=== PATIENT | female | born 1985 | race Hispanic/Latino ===

== ENCOUNTER 2017-10-31 05:28 | Inpatient (IN) | payer MEDICAID, OTHER, SELFPAY ==
[2017-10-31 06:07] VITALS: BMI 41.5
--- NOTE | 2017-10-31 07:15 | PDOC.FPROB ---
FMR OB H&P: HPI - History of Present Illness Chief Complaint: contractions History of Present Illness: 32yo F comes in for contractions started at about midnight 6 min apart. Now 3-5 minutes apart. She denies rupture of membranes. Denies bleeding, headache, sob, or swelling. Last meal 6pm 10/30. Primary Care Physician: lucas FMR OB H&P: Current - Care : 3 Para: 1 Gestational age: 40.0 Due date: 10/31 Dating Criteria: 8.3 wk US Total weight gain: 30 Course/Complications: bp 140/72 at last clinic visit maternal obesity - OB Labs Blood type: O RH: positive Antibody Screen: negative HIV: negative RPR: negative HepBsAg: negative Rubella: immune Urine drug screen: negative Gonorrhea: negative Chlamydia: negative Pap Smear: negative 1 hour gtt: negative A1c: normal FMR OB H&P: History - Past Medical History PMH: negative - OB History OB History: 1st : SAB at 9 weeks 2nd : op note reviewed, C/S 2/2 non-reassuring FHT, had dilated to 6 at time of surgery - 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 - Surgical History Sx History: C/S x1 - Social History Social History: no alcohol, smoking, or drugs FMR OB H&P: Medications - Current Home Medications: Medication Instructions Recorded Confirmed Type 105/Iron/Folic AC/Dha 1 tablet PO DAILY 10/31/17 10/31/17 History [[employer] Combo Pack] Allergies/Adverse Reactions: Allergies Allergy/AdvReac Type Severity Reaction Status Date / Time No Known Allergies Allergy Unverified 10/31/17 05:59 FMR OB H&P: ROS - Review of Systems General: denies: fever/chills, fatigue Eyes: denies: vision changes, double vision ENT: denies: nasal congestion, pain with swallowing Cardiovascular: denies: chest pain, palpitation Respiratory: denies: cough, congestion, shortness of breath Gastrointestinal: denies: nausea, vomiting, diarrhea Genitourinary (Female): reports: contractions. denies: dysuria, hematuria, vaginal bleeding Neurologic: denies: numbness, weakness, headache Integumentary: denies: itching Hematologic/Lymphatic: denies: prolonged or excessive bleeding Psychological: denies: depression, anxiety FMR OB H&P: Vital Signs - Maternal Vital signs: Vital Signs - First Documented Temp Pulse Resp BP 99.3 F 104 H 18 137/65 10/31/17 05:58 10/31/17 05:58 10/31/17 05:58 10/31/17 05:58 FMR OB H&P: Physical Exam - Physical Exam General: NAD, awake, alert and oriented HEENT: normocephalic and atraumatic Neck: supple Chest: non-tender to palpation Breast: symmetric Heart: RRR, normal S1/S2 General: CTAB, no respiratory distress Abdomen: soft, gravid Musculoskeletal: normal gait and station, pulses present Neurological: cranial nerves II through XII intact Skin: no rash, capillary refill <2 seconds Lymphatic: no unusual bruising or bleeding FMR OB H&P: Results - Labs Lab results: GBS negative - Imaging Imaging: posterior placenta FMR OB H&P: A/P - Problem List (1) Encounter for trial of labor Current Visit: Yes Status: Acute Code(s): O33.9 - MATERNAL CARE FOR DISPROPORTION, UNSPECIFIED Disposition: Admit to L&D # Tolac - denies ROM - /-2 at 0550 - cxns 3-5 min apart - cat 1 strip - discussed risks/benefits of TOLAC, patient is in understanding # Elevated BP - 137/65 on presentation - came down on re-checks in clinic - Pr/Cr ratio 0.16 - monitor BP # size > dates - growth scan on 10/26 will try to obtain results Discussion: Date/Time: 10/31/17 0713 This H&P was discussed with [] and [] who agree with the above documentation and plan. Attending Addendum - Attending Addendum Date/Time: 11/02/17 0844 I personally evaluated the patient and discussed the management with [Marianne] I agree with the History, Examination, Assessment and Plan documented above with any addition or exceptions noted below.
[2017-10-31] MEDS ORDERED: Lidocaine 1% (PF) 30 ML VIAL SC PRN (07:32)
[2017-10-31] MEDS ORDERED: Promethazine HCl 25 MG/ML VIAL IM PRN ×2 (07:32→22:05)
[2017-10-31] MEDS ORDERED: Butorphanol Tartrate 1 MG/ML VIAL SLOW IVP PRN (07:32)
[2017-10-31] MEDS ORDERED: Ondansetron HCl/PF 4 MG/2 ML Vial IVP PRN ×3 (07:32→22:05)
[2017-10-31] MEDS ORDERED: NS / Oxytocin 40 units/1000ml 1,000 ML IV PRN (07:32)
[2017-10-31 08:39] LABS: Hemoglobin 12.1 g/dL (12.0-16.0); Mean Corpuscular HGB CONC 35.7 g/dL (32.0-36.0); Mean Corpuscular Hemoglobin 30.4 pg (27.0-31.0); Mean Corpuscular Volume 85.2 fL (78.0-98.0); Mean Platelet Volume 6.9 fL (7.4-10.4); Platelet Count 170 thou/uL (130-400); RBC Distribution Width 12.6 % (11.5-14.5); Red Blood Cell (RBC) Count 3.97 mill/uL (4.20-5.40); White Blood Cell (WBC) Count 9.4 thou/uL (4.8-10.8)
--- NOTE | 2017-10-31 09:08 | PDOC.LDPN ---
Labor & Delivery Progress Note - Subjective Subjective: comfortable, painful contractions - Objective Vital signs reviewed and normal: yes General: NAD, resting, breathing through contractions Uterine fundus: non tender Dilation: 5 Effacement: 75% Station: -2 FHT: category 1 [place] contractions every: 4 - Assessment (1) Encounter for trial of labor Code(s): O33.9 - MATERNAL CARE FOR DISPROPORTION, UNSPECIFIED Current Visit: Yes Status: Acute Plan: continue plan of care -: # [place] - denies ROM - /-2 at 0800 - cxns 3-5 min apart - cat 1 strip - discussed risks/benefits of TOLAC, patient is in understanding # Elevated BP - 137/65 on presentation - came down on re-checks in clinic - Pr/Cr ratio 0.16 - monitor BP # size > dates - patient was 3900g on 10/26 # Hx of C/S 2/2 NRFHTs - discussed with PCP - first section was due to NRFHT not failure to progress as documented in [facility] records - PCP reviewed records from [facility]
[2017-10-31 09:12] LABS: Syphilis Antibody Nonreactive (Nonreactive); Syphilis Antibody Index 0.04 S/CO (<1.00 Non-Reactive)
[2017-10-31 09:15] LABS: HBSAg Index 0.19 S/CO (0-0.99); Hep B Surf Ag Non-Reactive S/CO (NonReactive)
--- NOTE | 2017-10-31 09:19 | PDOC.LDPN ---
Labor & Delivery Progress Note - Subjective Subjective: comfortable, painful contractions - Objective General: breathing through contractions Uterine fundus: non tender Dilation: 6 Effacement: 90% Station: -2 FHT: category 1 [place] contractions every: 3-5 Procedures: AROM AROM: clear fluid IUPC placed: yes - Assessment (1) Encounter for trial of labor Code(s): O33.9 - MATERNAL CARE FOR DISPROPORTION, UNSPECIFIED Current Visit: Yes Status: Acute -: # [place] - denies ROM - /-2 at 0900 - cxns 3-5 min apart - cat 1 strip - discussed risks/benefits of TOLAC, patient is in understanding # Elevated BP - 137/65 on presentation - came down on re-checks in clinic - Pr/Cr ratio 0.16 - monitor BP # size > dates - patient was 3900g on 10/26 # Hx of C/S 2/2 NRFHTs - discussed with PCP - first section was due to NRFHT not failure to progress as documented in [facility] records - PCP reviewed records from [facility] Procedure: AROM - Head engaged, non-ballotable - cat 1 strip before AROM - clear fluids - IUPC placed without difficulty
[2017-10-31] MEDS ORDERED: Lactated Ringer's 1,000 ML IV SCH (11:15)
--- NOTE | 2017-10-31 15:13 | PDOC.LDPN ---
Labor & Delivery Progress Note - Subjective Subjective: comfortable, other (states contraction pain is not bad) - Objective Vital signs reviewed and normal: yes General: NAD, breathing through contractions Uterine fundus: non tender Dilation: 7 Effacement: 90% Station: -1 FHT: category 1 - Assessment (1) Encounter for trial of labor Code(s): O33.9 - MATERNAL CARE FOR DISPROPORTION, UNSPECIFIED Current Visit: Yes Status: Acute Plan: continue plan of care
--- NOTE | 2017-10-31 15:18 | PDOC.LDPN ---
Labor & Delivery Progress Note - Subjective Subjective: comfortable, other (pain with contractions is "more or less", not bad) - Objective Vital signs reviewed and normal: yes General: NAD, breathing through contractions Dilation: 7 Effacement: 90% Station: -1 - Assessment (1) Encounter for trial of labor Code(s): O33.9 - MATERNAL CARE FOR DISPROPORTION, UNSPECIFIED Current Visit: Yes Status: Acute Plan: continue plan of care -: # [place] - denies ROM - /-1 at 1500 - cxns have spaced out, every 7-10 now - cat 1 strip - discussed risks/benefits of TOLAC, patient is in understanding - will need pit when nurse staffing allows - IUPC in place # Elevated BP - 137/65 on presentation - came down on re-checks in clinic - Pr/Cr ratio 0.16 - monitor BP # size > dates - patient was 3900g on 10/26 # Hx of C/S 2/2 NRFHTs - discussed with PCP - first section was due to NRFHT not failure to progress as documented in [facility] records - PCP reviewed records from [facility]
[2017-10-31] MEDS ORDERED: Oxytocin 10 UNITS/ML VIAL ONE ×2 (15:24→21:28)
[2017-10-31] MEDS ORDERED: NS w/ Oxytocin 10 units 500 ML ONE (15:26)
[2017-10-31] MEDS ORDERED: Sodium Chloride 0.9% 1,000 ML IV SCH (16:00)
[2017-10-31] MEDS: Lactated Ringer's 1,000 ML IV SCH (16:37)
--- NOTE | 2017-10-31 18:05 | PDOC.LDPN ---
Labor & Delivery Progress Note - Subjective Subjective: comfortable - Objective Vital signs reviewed and normal: yes General: resting Uterine fundus: non tender Dilation: /-1 per nurse check FHT: category 1 (150/mod/no accels/no decels) - Assessment (1) Encounter for trial of labor Code(s): O33.9 - MATERNAL CARE FOR DISPROPORTION, UNSPECIFIED Current Visit: Yes Status: Acute (2) Term Code(s): Z34.80 - ENCOUNTER FOR SUPRVSN OF NORMAL , UNSP TRIMESTER Current Visit: Yes Status: Acute Plan: continue plan of care -: 32 yo at 40.0w by LMP/8.3w sono here in labor 1. TOLAC - /-1 at 1715, unchanged at last check - IUPC in place and pitocin being titrated up - contractions q3-4 minutes - cat 1 strip - discussed risks/benefits of TOLAC, patient is in understanding 2. Elevated BP - 137/65 on presentation, 129/61 most recently - came down on re-checks in clinic - Pr/Cr ratio 0.16 - monitor BP 3. size > dates - patient was 3900g via growth sono 10/26 4. Hx of C/S 2/2 NRFHTs - discussed with PCP - first section was due to NRFHT per patient not failure to progress as documented in [facility] records - unable to review records at this time - Posterior placenta 5. GBS negative 6. Fam Hx HTN, DM 7. H/o D&C Will plan to recheck at approx 1915 unless indicated sooner, continue titration of pitocin with goal MVU approx 200
--- NOTE | 2017-10-31 19:21 | PDOC.LDPN ---
Labor & Delivery Progress Note - Subjective Subjective: painful contractions - Objective Vital signs reviewed and normal: yes General: breathing through contractions Uterine fundus: non tender Dilation: 7 Effacement: 90% Station: -1 FHT: category 1 (150/mod/no accel/no decel) [place] contractions every: 2-4 min - Assessment (1) Encounter for trial of labor Code(s): O33.9 - MATERNAL CARE FOR DISPROPORTION, UNSPECIFIED Current Visit: Yes Status: Acute (2) Term Code(s): Z34.80 - ENCOUNTER FOR SUPRVSN OF NORMAL , UNSP TRIMESTER Current Visit: Yes Status: Acute Plan: continue plan of care, pitocin for augmentation -: 32 yo at 40.0w by LMP/8.3w sono here in labor 1. TOLAC - /-1 - IUPC in place and pitocin being titrated up, MVU not yet adequate - contractions q2-4 minutes - cat 1 strip - discussed risks/benefits of TOLAC, patient is in understanding 2. Elevated BP on presentation - WNL throughout labor - Consistently came down on re-checks in clinic - Pr/Cr ratio 0.16 - monitor BP 3. size > dates - patient was 3900g via growth sono 10/26 4. Hx of C/S 2/2 NRFHTs - first section was due to NRFHT per patient not failure to progress as documented in PNC records - unable to review records at this time - Posterior placenta 5. GBS negative 6. Fam Hx HTN, DM 7. H/o D&C [place]he[place]x [id number] unless indicated sooner, continue titration of pitocin with goal MVU approx 200
[2017-10-31] MEDS ORDERED: CEFAZOLIN/Water 2 GM/20 ML SYRINGE ONE (21:16)
[2017-10-31] MEDS ORDERED: Bicitra 30 ML UDCUP ONE (21:16)
--- NOTE | 2017-10-31 21:23 | PDOC.LDPN ---
Labor & Delivery Progress Note - Subjective Subjective: comfortable - Objective Vital signs reviewed and normal: yes General: breathing through contractions Dilation: /-1 FHT: category 1 [place] contractions every: 2 - Assessment (1) Encounter for trial of labor Code(s): O33.9 - MATERNAL CARE FOR DISPROPORTION, UNSPECIFIED Current Visit: Yes Status: Acute (2) Term Code(s): Z34.80 - ENCOUNTER FOR SUPRVSN OF NORMAL , UNSP TRIMESTER Current Visit: Yes Status: Acute -: 32 yo at 40.0w by LMP/8.3w sono here in labor 1. TOLAC - /-1, no change in > 8 hours despite MVU adequate most recently - Discussed current situation with patient extensively and after discussing risks, benefits and alternatives she is agreeable to proceed with repeat LTCS for arrest of dilation 2. Elevated BP on presentation - WNL throughout labor - Consistently came down on re-checks in clinic - Pr/Cr ratio 0.16 - monitor BP 3. size > dates - patient was 3900g via growth sono 10/26 4. Hx of C/S 2/2 NRFHTs - first section was due to NRFHT per patient not failure to progress as documented in [facility] records - unable to review records at this time - Posterior placenta - Will proceed with repeat LTCS as above 5. GBS negative 6. Fam Hx HTN, DM 7. H/o D&C
[2017-10-31] MEDS ORDERED: Ondansetron HCl/PF 4 MG/2 ML Vial ONE (21:28)
[2017-10-31] MEDS ORDERED: PHENYLEPHRINE-NS 100 MCG/ML 10 ML SYRINGE ONE ×2 (21:28→22:06)
[2017-10-31] MEDS ORDERED: Lidocaine 1% PF 5 ML VIAL ONE (21:28)
[2017-10-31] MEDS ORDERED: Bupivacaine 0.75% W/DEXTROSE 8.25% 2 ML AMP ONE (21:28)
[2017-10-31] MEDS ORDERED: Morphine PF 1 MG/ML SYR ONE (21:28)
[2017-10-31] MEDS ORDERED: CEFAZOLIN/Water 2 GM/20 ML SYRINGE SLOW IVP SCH (21:30)
[2017-10-31] MEDS ORDERED: Bicitra 30 ML UDCUP PO SCH (21:30)
[2017-10-31] MEDS ORDERED: Azithromycin 500 MG in Sodium Chloride 0.9% 250 ML 250 ML IVPB SCH (21:30)
[2017-10-31] MEDS ORDERED: Meperidine HCl/PF 25 MG/ML VIAL SLOW IVP PRN (22:05)
[2017-10-31] MEDS ORDERED: Naloxone HCl 0.4 mg/ml Vial IV PRN (22:05)
[2017-10-31] MEDS ORDERED: diphenhydrAMINE 50 MG/ML VIAL IVP PRN (22:05)
[2017-10-31] MEDS ORDERED: Eucerin (Mineral Oil/Petrolatum,White) 30 gm Jar TOP PRN (22:05)
[2017-10-31] MEDS ORDERED: Promethazine HCl 25 MG SUPP PR PRN (22:05)
[2017-10-31] MEDS ORDERED: Naloxone HCl 0.4 mg/ml Vial IVP PRN ×2 (22:05)
[2017-10-31] MEDS ORDERED: HYDROmorphone 2 MG/ML VIAL SLOW IVP PRN (22:05)
[2017-10-31] MEDS ORDERED: Ketorolac Tromethamine 30 MG/ML VIAL IVP SCH (22:15)
[2017-10-31] MEDS ORDERED: Communication Order-Pharmacy FS SCH (22:15)
[2017-10-31] MEDS ORDERED: Lanolin Ointment 7 GM TUBE TOP PRN (22:56)
[2017-10-31] MEDS ORDERED: Meperidine HCl/PF 25 MG/ML VIAL ONE (23:32)
--- NOTE | 2017-10-31 23:54 | PRG ---
DATE OF SERVICE: 10/31/2017 TIME OF SERVICE: 2115 hours. SUBJECTIVE: Ms. Werner presented this a.m. complaining of contractions . She is 40 weeks gestati on for a trial of labor after . On presentation, she was 3, 80, -2. She progressed to 6, 90 , -2, had AROM performed at 0900 hours. She had hypotonic labor to about 1500. She was started on P itocin. She is currently 7, 80 and -2. Her approximately 150. She has had no significant cynthia nge in her cervix during this time. Her heart rate tracing is category 1. Dr. Camacho and Tomasz jean scussed her failure to progress with the patient and we have decided to proceed with repeat section. We will administer appropriate antibiotic and DVT prophylaxis. Please see further progress notes and operative note dictated by Dr. Camacho.
[2017-11-01] MEDS ORDERED: Ketorolac Tromethamine 30 MG/ML VIAL ONE (00:05)
[2017-11-01] MEDS: Ketorolac Tromethamine 30 MG/ML VIAL IVP PRN ×2 (00:06→05:54)
[2017-11-01] MEDS: Lactated Ringer's 1,000 ML IV SCH ×2 (03:46→05:11)
[2017-11-01] MEDS: NS w/ Oxytocin 10 units 500 ML IV SCH ×2 (03:46→21:10)
--- NOTE | 2017-11-01 05:05 | OP-2 ---
[facility] SECTION OPERATIVE NOTE DATE OF PROCEDURE: 10/31/2017 RESIDENT SURGEON: Eve Camacho MD STAFF DEVELOPMENT MANAGER SURGEON: Roberto Lopes MD ATTENDING SURGEON: Colton Magaña MD PROCEDURE: Repeat low transverse section. PREOPERATIVE DIAGNOSES: 1. Term intrauterine . 2. Arrest of dilation. 3. Previous section. 4. Failed trial of labor after a . 5. Maternal obesity. POSTOPERATIVE DIAGNOSES: 1. Term intrauterine . 2. Arrest of dilation. 3. Previous section. 4. Failed trial of labor after a . 5. Maternal obesity. 6. Status post repeat low transverse without complications. ANESTHESIA: Spinal. INDICATIONS: The patient is a 32-year-old -0-1-1 female at 40 weeks' gestation who presented initially in labor. The patient initially presented in active labor on her own, however, did not make any cervical change past 7 cm. At that time, an IUPC was placed and labor was augmented until MVUs were adequate. She did not make any further cervical change and after approximately 21 hours since onset of labor, decision was made along with the patient to proceed with repeat low transverse . PROCEDURE IN DETAIL: After risks, benefits, and alternatives explained to the patient, she gave informed consent. Preoperative antibiotics included cefazolin 2 grams IV and azithromycin 500 mg IV. The patient was taken to the operating room and spinal anesthesia was initiated. She was placed in supine position with left tilt and prepped and draped in usual sterile fashion. A Pfannenstiel incision was made with scalpel and carried down to level of the fascia, which was sharply nicked. The fascial cut was extended bilaterally with Patiño scissors. The inferior and superior edges of the cut fascial edges were elevated with Walker clamps and underlying rectus muscles were sharply and bluntly dissected free. The recti were divided digitally and retracted manually. The peritoneum was entered bluntly and retracted manually. An Juliano O was placed. Anterior uterine adhesions were noted and were transected with scissors and Bovie cautery. A low transverse score was made with scalpel and the uterus was entered in the midline bluntly. Clear fluid was seen. The hysterotomy was extended manually. The was noted to be vertex and easily delivered by fundal pressure. Mouth and nares were bulb suctioned. Cord clamped and cut. Grossly normal female infant was handed to awaiting nurse. Cord blood was obtained. Placenta was manually extracted and found to be intact with three-vessel cord and discarded. The endometrium was curetted with a dry lap. The uterus was closed with a running locking #1 Monocryl suture followed by a horizontal mattress #1 Monocryl stitch and a figure-of- eight #1 chromic stitch. Following this, hemostasis was noted. The abdomen was irrigated with saline and suctioned free of clots. The uterus was again examined and the hysterotomy was noted to be hemostatic. The fascia was closed with running nonlocking 0 PDS suture. The subcutaneous tissue was irrigated and all bleeders were cauterized. Subcutaneous tissue was approximated with 3 interrupted 2-0 plain gut sutures. The skin was approximated with 4-0 Monocryl suture on a Joao needle and Dermabond and a pressure dressing were placed. All counts were correct. The patient tolerated the procedure well and was taken to the recovery room in stable condition. QUANTITATIVE BLOOD LOSS: 913 mL COMPLICATIONS: None. SPECIMENS: Cord blood sent to lab for blood type. FINDINGS: 1. Grossly normal female infant who was vigorous at delivery. 2. Gross normal placenta with three-vessel cord discarded. DRAINS: Ward to gravity draining clear urine. URINE OUTPUT: 100 mL. [facility]
--- NOTE | 2017-11-01 05:37 | PDOC.PP ---
Post Progress Note Post Day #: 1 Subjective: Patient feels well. She has not had a BM or passed gas of yet. She has tolerated PO intake. She has not walked as of yet. Less bleeding than a menses. Says it is slowing down. Minimal pain. PO intake tolerated: yes Flatus: no Ambulation: no Vital Signs (12 hours) Temp Pulse Resp BP Pulse Ox 11/01/17 03:15 99.4 F 76 16 116/66 10/31/17 22:56 98.3 F 78 16 122/56 L 100 10/31/17 20:00 99.7 F H 80 18 Weight Weight 99.79 kg - Physical Examination General: NAD Cardiovascular: no m/r/g, RRR Respiratory: clear to auscultation bilaterally, non-labored breathing Abdominal: + bowel sounds, lochia, appropriately TTP Skin: CS incision dry & intact Deviation from normal: uterus 1cm below the umbilicus Neurological: no gross focal deficits Psychiatric: A&Ox3, normal affect Result Diagrams: 11/01/17 05:20 Additional Labs: Post Labs Blood Type O POSITIVE 10/31/17 08:14 Hep Bs Antigen Non-Reactive S/CO (NonReactive) 10/31/17 08:14 (1) Encounter for trial of labor Code(s): O33.9 - MATERNAL CARE FOR DISPROPORTION, UNSPECIFIED Status: Acute - Assessment/Plan # PP care day 1 - hgb 12.1 -> 10.4, recheck tomorrow, asymptomatic - tolerating PO intake, stopped fluids, monitor for BM/flatus - no oozing at surgical site, vaginal bleeding less than a menses - encourage early ambulation - SCDs - continue <Roberto Lopes - Last Filed: 11/01/17 06:00> Vital Signs (12 hours) Temp Pulse Resp BP Pulse Ox 11/01/17 03:15 99.4 F 76 16 116/66 10/31/17 22:56 98.3 F 78 16 122/56 L 100 10/31/17 20:00 99.7 F H 80 18 Weight Weight 99.79 kg Result Diagrams: 11/01/17 05:20 Additional Labs: Post Labs Blood Type O POSITIVE 10/31/17 08:14 Hep Bs Antigen Non-Reactive S/CO (NonReactive) 10/31/17 08:14 <Elmer Kimbrough - Last Filed: 11/01/17 07:29> Attending Addendum - Attending Addendum Date/Time: 11/01/17728 I personally evaluated the patient and discussed the management with Dr. Lopes I agree with the History, Examination, Assessment and Plan documented above with any addition or exceptions noted below. <Elmer Kimbrough - Last Filed: 11/01/17 07:29>
[2017-11-01 05:43] LABS: Hemoglobin 10.4 g/dL (12.0-16.0); Mean Corpuscular HGB CONC 33.4 g/dL (32.0-36.0); Mean Corpuscular Hemoglobin 28.7 pg (27.0-31.0); Mean Platelet Volume 6.6 fL (7.4-10.4); Platelet Count 145 thou/uL (130-400); RBC Distribution Width 12.7 % (11.5-14.5); Red Blood Cell (RBC) Count 3.62 mill/uL (4.20-5.40); White Blood Cell (WBC) Count 12.5 thou/uL (4.8-10.8)
[2017-11-01] MEDS ORDERED: Ibuprofen 800 MG TAB PO SCH (06:00)
[2017-11-01] MEDS: Prenatal Vitamin 1 TAB PO SCH (08:46)
[2017-11-01] MEDS: Docusate Calcium (SURFAK) 240 MG CAP PO SCH ×2 (08:46→21:15)
[2017-11-01] MEDS ORDERED: Adacel (T-DAP) 0.5 ML VIAL IM ONE (09:00)
[2017-11-01] MEDS: Ferrous Sulfate 325 MG TAB PO SCH ×2 (09:47→17:07)
[2017-11-01] MEDS: HYDROcodone/Acetaminophen 5/325 mg Tablet PO PRN ×2 (17:19→21:15)
[2017-11-01] MEDS: Simethicone Chewable 80 MG TAB PO PRN (21:15)
[2017-11-01] MEDS: Ibuprofen 800 MG TAB PO SCH (21:15)
--- NOTE | 2017-11-02 05:07 | PDOC.PP ---
Post Progress Note Post Day #: 2 Subjective: Feeling well. Pain adequately controlled. Feels is going ok but that baby is more interested in the bottle. PO intake tolerated: yes Ambulation: yes Vital Signs (12 hours) Temp Pulse Resp BP 11/02/17 00:00 97.6 F 86 16 126/60 11/01/17 20:00 99.4 F 87 16 116/67 11/01/17 17:28 98.7 F 101 H 20 115/59 L 11/01/17 17:19 98.8 F 114 H 24 H Weight Weight 99.79 kg - Physical Examination General: NAD Cardiovascular: no m/r/g, RRR Respiratory: clear to auscultation bilaterally, non-labored breathing Abdominal: + bowel sounds, lochia (minimal), appropriately TTP Fundus firm & at: just above umbilicus Extremities: negative homans (B) (no calf tenderness) Skin: CS incision dry & intact, no rash Neurological: no gross focal deficits Psychiatric: A&Ox3, normal affect Result Diagrams: 11/01/17 05:20 Additional Labs: Post Labs Blood Type O POSITIVE 10/31/17 08:14 Hep Bs Antigen Non-Reactive S/CO (NonReactive) 10/31/17 08:14 (1) Encounter for trial of labor Code(s): O33.9 - MATERNAL CARE FOR DISPROPORTION, UNSPECIFIED Status: Acute (2) Term Code(s): Z34.80 - ENCOUNTER FOR SUPRVSN OF NORMAL , UNSP TRIMESTER Status: Acute - Assessment/Plan 32 yo G2 now P2002 POD #2 from repeat LTCS for arrest of dilation after TOLAC 1. PPD #2 - hgb 12.1 -> 10.4, asymptomatic - tolerating PO intake - no oozing at surgical site, lochia minimal - encourage ambulation - SCDs when in bed - continue Continue routine PP care. Likely discharge tomorrow. <Eve Camacho - Last Filed: 11/02/17 05:28> Vital Signs (12 hours) Temp Pulse Resp BP 11/02/17 00:00 97.6 F 86 16 126/60 11/01/17 20:00 99.4 F 87 16 116/67 Weight Weight 220 lb Result Diagrams: 11/01/17 05:20 Additional Labs: Post Labs Blood Type O POSITIVE 10/31/17 08:14 Hep Bs Antigen Non-Reactive S/CO (NonReactive) 10/31/17 08:14 <Gayle Bartlett - Last Filed: 11/02/17 05:36> Attending Addendum - Attending Addendum Date/Time: 11/02/17 0535 I personally evaluated the patient and discussed the management with Dr. Camacho I agree with the History, Examination, Assessment and Plan documented above. <Gayle Bartlett - Last Filed: 11/02/17 05:36>
[2017-11-02] MEDS: Ibuprofen 800 MG TAB PO SCH ×3 (05:20→21:54)
[2017-11-02] MEDS ORDERED: Ibuprofen 800 MG TAB PO SCH (06:00)
[2017-11-02] MEDS: Docusate Calcium (SURFAK) 240 MG CAP PO SCH ×2 (07:40→21:54)
[2017-11-02] MEDS: Simethicone Chewable 80 MG TAB PO PRN (07:40)
[2017-11-02] MEDS: Prenatal Vitamin 1 TAB PO SCH (07:40)
[2017-11-02] MEDS: HYDROcodone/Acetaminophen 5/325 mg Tablet PO PRN ×3 (07:41→19:10)
[2017-11-02] MEDS: Ferrous Sulfate 325 MG TAB PO SCH ×2 (09:50→18:35)
[2017-11-02] MEDS: NS w/ Oxytocin 10 units 500 ML IV SCH (16:47)
[2017-11-02] MEDS ORDERED: Acetaminophen/Codeine 30-300mg Tablet PO PRN ×2 (21:45)
[2017-11-03] MEDS: Ibuprofen 800 MG TAB PO SCH ×2 (05:01→13:39)
--- NOTE | 2017-11-03 06:40 | PDOC.PP ---
Post Progress Note Post Day #: 3 Subjective: Feeling much better this morning. Pain adequately controlled. Tolerating PO and feels ready to go home today. PO intake tolerated: yes Flatus: yes Ambulation: yes Vital Signs (12 hours) Temp Pulse Resp BP Pulse Ox 11/02/17 20:50 98.6 F 83 20 116/56 L 96 Weight Weight 99.79 kg - Physical Examination General: NAD Cardiovascular: no m/r/g, RRR Respiratory: clear to auscultation bilaterally Abdominal: + bowel sounds, lochia (minimal), appropriately TTP Fundus firm & at: 1-2 cm above umbilicus, stable from yesterday Extremities: negative homans (B) Skin: CS incision dry & intact, no rash Neurological: no gross focal deficits Psychiatric: A&Ox3, normal affect Result Diagrams: 11/01/17 05:20 Additional Labs: Post Labs Blood Type O POSITIVE 10/31/17 08:14 Hep Bs Antigen Non-Reactive S/CO (NonReactive) 10/31/17 08:14 (1) Encounter for trial of labor Code(s): O33.9 - MATERNAL CARE FOR DISPROPORTION, UNSPECIFIED Status: Acute (2) Term Code(s): Z34.80 - ENCOUNTER FOR SUPRVSN OF NORMAL , UNSP TRIMESTER Status: Acute (3) delivery delivered Code(s): O82 - ENCOUNTER FOR DELIVERY WITHOUT INDICATION Status: Acute - Assessment/Plan 32 yo G2 now P2002 POD #3 from repeat LTCS for arrest of dilation after TOLAC 1. POD #3 - Hgb 12.1 -> 10.4, asymptomatic - Tolerating PO intake - C/S incision clean and dry, subcuticular closure no staple removal needed - Encourage ambulation - Encouraged and discussed recommendation to avoid Tylenol #3 if needed for pain prior to Discharge later this morning. <Eve Camacho - Last Filed: 11/03/17 06:37> Vital Signs (12 hours) Temp Pulse Resp BP Pulse Ox 11/03/17 07:33 97.7 F 59 L 20 112/64 11/02/17 20:50 98.6 F 83 20 116/56 L 96 Weight Weight 220 lb Result Diagrams: 11/01/17 05:20 Additional Labs: Post Labs Blood Type O POSITIVE 10/31/17 08:14 Hep Bs Antigen Non-Reactive S/CO (NonReactive) 10/31/17 08:14 (1) Encounter for trial of labor Code(s): O33.9 - MATERNAL CARE FOR DISPROPORTION, UNSPECIFIED Status: Acute <Kevin Storm - Last Filed: 11/03/17 08:21> Attending Addendum - Attending Addendum Date/Time: 11/03/17820 I personally evaluated the patient and discussed the management with Dr. Tyler I agree with the History, Examination, Assessment and Plan documented above with any addition or exceptions noted below. <Kevin Storm - Last Filed: 11/03/17 08:21>
[2017-11-03 07:34] VITALS: BP 112/64; TEMP 97.7
[2017-11-03] MEDS: Docusate Calcium (SURFAK) 240 MG CAP PO SCH (08:47)
[2017-11-03] MEDS: Ferrous Sulfate 325 MG TAB PO SCH (08:47)
[2017-11-03] MEDS: Prenatal Vitamin 1 TAB PO SCH (08:47)
--- NOTE | 2017-11-04 06:43 | PDOC.OPDEL ---
OB Operative/Delivery Note Delivery Dr/Surgeon: Eve Camacho MD Assist: Roberto Lopes MD Attending: Colton Magaña MD Pre-Delivery Diagnosis: arrest of dilation, other (history of C/S, failed TOLAC) Procedure/Post Delivery Dx: repeat low transverse CS Weeks gestation: 40 Anesthesia: spinal - Findings A Sex: female Weight: 3.849 kg - 1 min: 8 - 5 min: 9 - Additional Findings/Plan Placenta delivered: manual removal findings: low transverse hysterotomy without extension, other ( anterior adhesions) Estimated blood loss: QBL 917 mL Compilations/Other Findings: Placenta intact with 3VC Post delivery plan: routine recovery
== END 2017-11-03 13:49 | disposition home or self-care (01) | DRG 765 ==
LOC: L&D/OP 05:28 → L&D 08:27 → 3SW 11-01 03:17
PROVIDERS: ADMIT Obstetrics & Gynecology; ATTEND Obstetrics & Gynecology
PROC: 10D00Z1 Extraction of Products of Conception, Low, Open Approach (ICD-10-PCS; principal; 2017-10-31)
DX: O34.211 Maternal care for low transverse scar from previous cesarean delivery (principal); Z68.41 Body mass index [BMI] 40.0-44.9, adult; Z37.0 Single live birth; O62.0 Primary inadequate contractions; O99.214 Obesity complicating childbirth; E66.01 Morbid (severe) obesity due to excess calories; Z3A.40 40 weeks gestation of pregnancy
CPT/HCPCS: 36415; 51702; 85027; 86780; 86850; 86900; 86901; 87340; 99285; J0456; J1885; J2001; J2175; J2274; J2405; J2590; J3490; J7050

== ENCOUNTER 2019-07-28 16:41 | Emergency (ER) | payer MEDICAID, SELFPAY ==
[2019-07-28 18:18] LABS: Bacteria/HPF None Seen HPF (None Seen); Bilirubin Negative (Negative); Blood, Urine 1+ (Negative); Clarity Clear (Clear); Glucose, Urine (Dipstick) Normal (Negative); Leukocyte Negative Leu/uL (Negative); Nitrite Negative (Negative); Pregnancy Test - Urine (BHCG) Negative (Negative); Pregu Control Background? CLEAR/WHITE (CLR/WHITE); Pregu Control Bar Appear? YES (CONTROL BAR); Protein, Urine (Dipstick) 30 mg/dL (Neg-Trace); Specific Gravity 1.036 (1.002-1.036); Squamous Epithelial 0-3 HPF (0-3); WBC/HPF 0-3 HPF (0-3)
[2019-07-28 19:02] LABS: #Basophils 0.1 thou/uL (0.0-0.2); #Eosinphils 0.1 thou/uL (0.0-0.7); #Lymphocytes 2.5 thou/uL (1.20-3.40); #Monocytes 0.6 thou/uL (0.11-0.59); %Basophils 0.8 % (0.0-1.0); %Eosinophils 1.4 % (0.0-10.0); %Lymphocytes 39.9 % (21.0-51.0); %Monocytes 9.1 % (0.0-10.0); %Neutrophils 48.8 % (42.0-75.0); Mean Corpuscular HGB CONC 33.9 g/dL (32.0-36.0); Mean Corpuscular Hemoglobin 29.7 pg (27.0-31.0); Mean Corpuscular Volume 87.5 fL (78.0-98.0); Mean Platelet Volume 7.3 fL (7.4-10.4); Platelet Count 241 thou/uL (130-400); Red Blood Cell (RBC) Count 4.37 mill/uL (4.20-5.40); White Blood Cell (WBC) Count 6.2 thou/uL (4.8-10.8)
[2019-07-28 19:23] LABS: Anion Gap 12 mmol/L (10-20); BUN (Urea Nitrogen) 11 mg/dL (7.0-18.7); Calc. Creatinine Clearance 0 mL/min (70-130); Carbon Dioxide 26 mmol/L (22-29); Chloride 106 mmol/L (98-107); Estimated GFR-MDRD Greater than 90; Glucose 118 mg/dL (70-105); Potassium 3.9 mmol/L (3.5-5.1); Sodium 140 mmol/L (136-145)
--- NOTE | 2019-07-28 19:26 | CT ---
CT ABDOMEN AND PELVIS WITHOUT CONTRAST STONE PROTOCOL 07/28/19 HISTORY: Low back pain. COMPARISON: None. FINDINGS: Lung bases are clear. No pericardial effusion. Diffuse hepatic steatosis. There is no nephroureterolithiasis or hydroureteronephrosis. No secondary evidence of a recently pass ed stone. Noncontrast evaluation of the spleen, pancreas, and adrenal glands are unremarkable. There is no acut e osseous abnormality. The appendix is visualized and is normal. IMPRESSION: 1. No nephroureterolithiasis or hydroureteronephrosis. No secondary evidence for recently passed stone. 2. No acute inflammatory process in the abdomen and pelvis. Normal appendix. 3. Diffuse hepatic steatosis. POS: HOME
== END 2019-07-28 19:41 | disposition home or self-care (01) ==
LOC: ERS 16:41
DX: M54.5 Low back pain (principal); K76.0 Fatty (change of) liver, not elsewhere classified; R31.9 Hematuria, unspecified
CPT/HCPCS: 36415; 74176; 80048; 81003; 81015; 81025; 85025